=== PATIENT | female | born 1940 | race Caucasian/White ===

== ENCOUNTER 2019-04-07 12:57 | Outpatient (CLI) | payer OTHER | END 2019-04-07 13:17 | disposition home or self-care (01) | LOC: MAMO-SONO 12:57 | DX: N60.11 Diffuse cystic mastopathy of right breast (principal); Z12.31 Encounter for screening mammogram for malignant neoplasm of breast; Z87.898 Personal history of other specified conditions; N95.8 Other specified menopausal and perimenopausal disorders ==

== ENCOUNTER 2019-04-13 16:26 | Outpatient (CLI) | payer OTHER ==
[2019-04-13] MEDS ORDERED: ATACAND32 MG PO (16:59)
[2019-04-13] MEDS ORDERED: SYNTHROID112 MCG PO (17:00)
[2019-04-13] MEDS ORDERED: PRADAXA150 MG PO (17:00)
[2019-04-13] MEDS ORDERED: FOLGARD TABLET1 EACH PO (17:00)
[2019-04-13] MEDS ORDERED: PRAVASTATIN SOD40 MG PO (17:01)
[2019-04-13] MEDS ORDERED: LASIX20 MG PO (17:02)
[2019-04-13] MEDS ORDERED: METOPR PO (17:02)
[2019-04-13] MEDS ORDERED: FORTAMET500 MG PO (17:02)
== END 2019-04-13 16:30 | disposition home or self-care (01) ==
LOC: LAB 16:26
DX: R10.2 Pelvic and perineal pain (principal); R05 Cough

== ENCOUNTER 2019-04-28 06:44 | Day surgery (SDC) | payer OTHER ==
[~2019-04-28 06:44] MED LIST: ATACAND32 MG PO; FOLGARD TABLET1 EACH PO; FORTAMET500 MG PO; LASIX20 MG PO; METOPR PO; PRADAXA150 MG PO; PRAVASTATIN SOD40 MG PO; SYNTHROID112 MCG PO
== END 2019-04-28 14:05 | disposition home or self-care (01) ==
LOC: CIR.AMB
DX: N95.0 Postmenopausal bleeding (principal)

== ENCOUNTER 2019-12-15 08:55 | Outpatient (CLI) | payer OTHER | END 2019-12-15 08:57 | disposition home or self-care (01) | LOC: MAMO-SONO 08:55 | DX: C50.411 Malignant neoplasm of upper-outer quadrant of right female breast (principal) ==